=== PATIENT | female | born 1945 | race Caucasian/White ===

== ENCOUNTER 2019-08-10 14:01 | Inpatient (IN) | payer OTHER ==
[~2019-08-10] VITALS: Ht 165.1 cm; Wt 48.5 kg
[2019-08-10] MEDS ORDERED: ST. JOSEPH ASPI81 MG PO ×2 (14:26→14:27)
[2019-08-10] MEDS ORDERED: BACLOFEN5 MG PO (14:28)
[2019-08-10] MEDS ORDERED: CELEXA 20 MG TA20 MG PO (14:29)
[2019-08-10] MEDS ORDERED: DEXAMETHASONE4 MG PO (14:31)
[2019-08-10] MEDS ORDERED: DEXAMETHASONE 44 M1 PO (14:35)
[2019-08-10] MEDS ORDERED: DECADRON4 MG PO (14:36)
[2019-08-10] MEDS ORDERED: LEVO-T100 MCG PO (14:39)
[2019-08-10] MEDS ORDERED: KEPPRA 500 MG500 MG PO (14:39)
[2019-08-10 15:30] VITALS: BP 121/74
--- NOTE | 2019-08-10 16:09 | NUR ---
ASSUMED CARE OF PT AT 1540 WHEN PT BROUGHT TO UNIT BY TRANSPORT COMPANY FROM [facility]. RECEIVED REPORT FROM TREVON AT [facility] PRIOR TO PT ARRIVAL ON UNIT. PT IS A&OX4, BUT HAS VERY LIMITED VERBAL SKILLS AND IS ABLE TO ANSWER YES AND NO QUESTIONS. ADMISSION VITAL SIGNS, HEIGHT AND WEIGHT OBTAINED, AND PT ASSESSMENT COMPLETED. VITAL SIGNS ARE STABLE, PT DENIES PAIN, HR REGULAR, LUNG SOUNDS CLEAR IN ALL LOBES BILATERALLY, ABDOMINAL SOUNDS ACTIVE IN ALL QUADRANTS. COCCYX IS RED AND HAS PROTECTIVE FOAM DRESSING TO AREA WITH BARRIER CREAM APPLIED. RIGHT SIDE FLACCID, REQUIRES 2 PERSON ASSIST TO PIVOT TRANSFER. NO DRAINS OR LINES ON ADMISSION. PT ON 2L O2 VIA NC MAINTAINING O2 SAT OF 95%. CONSULTS CALLED, MEDICATION REC COMPLETED, ALLERGIES ENTERED, PROVIDER NOTIFIED PT IS ON UNIT AT THIS TIME. WILL COMPLETE ADMISSION HX WHEN SPOUSE ON UNIT. FALL PRECAUTIONS IN PLACE, NURSING WILL CONTINUE TO MONITOR.
[2019-08-10 20:10] VITALS: BP 146/74
--- NOTE | 2019-08-11 01:12 | NUR ---
PT ALERT WITH APHASIA. ANSWERS APPROPRIATELY WITH YES OR NO. RIGHT SIDE FLACCID. INCONT OF URINE IN LARGE AMTS. PT C/O PAIN IN HER RIGHT LEG. TYLENOL GIVEN AT HS. CONGESTED NON-PRODUCTIVE COUGH NOTED. 02 ON AT 2L PER NC CONT. O2 SAT 96% PT TURNED Q2H. BED ALARM ON FOR SAFETY. PT APPEARS TO BE SLEEPING ON HOURLY ROUNDS.
[2019-08-11 06:50] LABS: HEMOGLOBIN 11.5 gm/dL (12.0-15.0); MCH 31.4 pg (26.0-34.0); MCHC 32.9 g/dL (28.0-37.0); MCV 95.5 fL (80.0-100.0); RBC 3.67 mil/uL (4.20-5.00); RDW 14.5 % (10.5-14.5); WBC 13.1 thou/uL (4.0-11.0)
[2019-08-11 07:08] LABS: CALCIUM 9.2 mg/dL (8.5-10.1); CREATININE 0.8 mg/dL (0.6-1.0); POTASSIUM 3.8 mmol/L (3.5-5.1)
[2019-08-11 08:35] VITALS: BP 117/67
--- NOTE | 2019-08-11 12:30 | NUR ---
chart review. pt up in wheel chair. she is able to answer yes and no question and said " nice to meet you"/ernesto. pt is flaccid on right side on body. noted in chart and pt " live with , in house, 3 steps. yes basement. independent prior to admit at [facility]. no dme, manage own medication. drives vehicle. no past hh or rehab in past."/ernesto and chart. cm spoke with via phone call, education on dcp and team meeting and find out if pt has insurance and who primary care dr is. yes she has insurance and her dr is eros lyons at [facility]. i will be up later to visit thank you for calling. how did she do today in therapy?"/adrianne . education that can ask therapy to call him or nurse but she working with therapy today.
--- NOTE | 2019-08-11 15:50 | NUR ---
ASSUMED CARE AT 0700, PT A&O X 4, NO ACUTE DISTRESS NOTED. VSS, O2 ON 2L VIA NC. PT DENIES PAIN. MEDS WHOLE WITH APPLESAUCE R/T APHASIA. R SIDE FLACCID, PT IS MAX ASSIST X 2 WITH PIVOT TO CHAIR. NPC NOTED. INCONTINENT OF BOWEL AND BLADDER, LAST BM 08/10/19. NO IV ACCESS. TOLERATED THERAPY TODAY. DENIES ANY PAIN OR DISCOMFORT. BED IN LOWEST POSITION, CALL LIGHT WITHIN REACH, WILL CONTINUE TO MONITOR PER POC.
[2019-08-11 20:10] VITALS: BP 128/69
--- NOTE | 2019-08-12 02:23 | NUR ---
ASSESSED AT START OF SHIFT. ON 2L OF O2. RT SIDED WEAKNES NOTED. PT TAKES MEDS WHOLE WITH APPLE SAUCE ARTHUR EVEING MEDS FINE. FALL PREC IN PLACE, FREQ ROUNDING DONE AND PT REPOSITIONED FOR COMFORT, LOW AIR LOSS MATRESS ON. WILL CONT TO MONITOR TILL EOS.
[2019-08-12 09:00] VITALS: BP 118/60
--- NOTE | 2019-08-12 17:19 | NUR ---
ASSUMED CARE OF PT AT 0715. PT IS A&OX4 AND VITAL SIGNS ARE STABLE. PT DENIES PAIN AND IS PARTICIPATING IN THERAPIES. PT HAS POOR APPETITE, ENCOURAGING PO INTAKE. PT IS FLACCID TO RIGHT SIDE, PRESSURE RELIEF MEASURES IN PLACE, TURNING Q2H, INCONTINENT TO BOWEL AND BLADDER. HR REGULAR, LUNG SOUNDS CLEAR TO ALL LOBES BILATERALLY, BOWEL SOUNDS ACTIVE IN ALL QUADRANTS. PT REQUIRES 2L OF O2 VIA NC TO MAINTAIN SPO2 >90%. PT HAS DIFFICULTY WITH EXPRESSING NEEDS, USES SHORT SIMPLE 1-2 WORD RESPONSES. FALL PRECAUTIONS IN PLACE, NURSING WILL CONTINUE TO MONITOR.
[2019-08-12 19:40] VITALS: BP 148/78
--- NOTE | 2019-08-13 04:16 | NUR ---
ASSUMED CARE AT APPROX 1900 EVENING 08/12. PT LYING IN BED WITH HEAD OF BED ELEVATED RESTING. PT TOOK HS MEDS WITH APPLESAUCE TOLERATING WELL. PT APPEARS TO BE SLEEPING SOUNDLY WITH HOURLY ROUNDING CHECKS. BED ALARM ON AND CALL LIGHT IN REACH. WILL CONTINUE TO MONITOR.
[2019-08-13 08:00] VITALS: BP 131/62
--- NOTE | 2019-08-13 15:22 | NUR ---
ASSUMED CARE OF PT AT 0715. PT IS A&OX4 AND VITAL SIGNS ARE STABLE. PT DENIES PAIN AND PARTICIPATED IN SCHEDULED THERAPIES. PT ON 2L O2 VIA NC, FAILED ATTEMPTS TO LOWER O2. PT FLACCID TO THE RIGHT SIDE AND HAS SIGNIFICANT LEAN TO RIGHT SIDE. EXPRESSIVE APHAGIA AND PT ABLE TO SPEAK IN 1-2 WORD STATEMENTS. APPETITE INCREASED THIS SHIFT. PT REQUIRES 1-2 PERSON TO PIVOT TRANSFER. PT INCONTINENT OF BOTH BOWEL AND BLADDER, BUT IS AWARE WHEN SHE HAS INCONTINENT EPISODES. HR REGUALR, LUNG SOUNDS CLEAR IN ALL LOBES, ABDOMINAL SOUNDS ACTIVE IN ALL QUADRANTS. IN ROOM WITH PATIENT. NO IV ACCESS AT THIS TIME. CALLS APPROPRIATLEY FOR ASSITANCE, FALL PRECAUTIONS IN PLACE, NURSING WILL CONTINUE TO MONITOR.
[2019-08-13 19:03] VITALS: BP 108/48
--- NOTE | 2019-08-14 02:50 | NUR ---
ASSUMED CARE AT APPROX 1900 EVENING 08/13. PT LYING IN BED SLEEPING AT CHANGE OF SHIFT. PT AWOKE FOR HS MEDS AND STATED SHE WAS TIRED FROM THERAPY. PT TOOK HS MEDS WITH APPLESAUCE TOLERATING WELL. PT APPEARS TO BE SLEEPING SOUNDLY WITH HOURLY ROUNDING. BED ALARM ON AND CALL LIGHT IN REACH. WILL CONTINUE TO MONITOR.
[2019-08-14 08:00] VITALS: BP 117/62
--- NOTE | 2019-08-14 11:59 | NUR ---
ASSUMED CARE AT 0700, PT A&O X 4, NO ACUTE DISTRESS DURING SHIFT. VSS, O2 ON 2L VIA NC. PT DENIES ANY PAIN OR DISCOMFORT, MAX ASSIST X 2 PIVOT TO WHEELCHAIR. NO IV ACCESS NOTED, TOLERATES MEDS WHOLE IN APPLESAUCE. INCONTINENT OF BOWEL AND BLADDER. EATING LUNCH IN DINING ROOM, WILL CONTINUE TO MONITOR PER POC.
[2019-08-14 20:14] VITALS: BP 112/68
--- NOTE | 2019-08-14 22:31 | NUR ---
PT ASSESSMENT COMPLETED AND VSS. MEDS GIVEN ORDERED AND WELL TOLERATED. FALL PRECAUTIONS IN PLACE. PTS RIGHT SIDE FLACID. PT STATES THAT SHE DOES NOT HAVE ANY FEELING IN THAT SIDE WHICH IS NOT A CHANGE SINCE HER STROKE. PT C/O PRESSURE AREA ON HER BOTTOM. PRESSURE WOUND ON COCCYX. PICTURES TAKEN. ZINC CREAM APPLIED. WOUND CARE CONSULT ORDERED. SLEEPING. ASST WITH FREQUENT REPOSITION FOR COMFORT. WILL CONTINUE TO MONITOR FREQUENTLY. SAT WNL ON 2L NC.
--- NOTE | 2019-08-15 13:33 | NUR ---
WOUND CONSULT; COCCYX ARE WAS ASSESSED. A SMALL AREA WAS IDENTIFIED. NO S/S OF INFECTION. RED WOUND BED. NO NECROSIS. THE PATIENT IS INCONTINET OF URINE. RECOMMEDNATIONS; 1-LOW AIR LOSS PUMP 2-ZGUARD 3-PURWICK DISCUSSED WITH CHOLO
--- NOTE | 2019-08-15 17:29 | NUR ---
ASSUMED CARE OF PT AT 0715 PT IS A&OX4 AND VITAL SIGNS ARE STABLE. PT DENIES PAIN AND IS PARTICIPATING IN SCHEDULED THERAPIES. WOUNDS CLEANED AND TREATED PER ORDERS, LOW AIRLOSS MATTRESS IN PLACE, TURNED OR REPOSITIONED EVERY 2 HOURS. LAXATIVES PROVIDED FOR PT DUE TO CONSTIPATION, NO RESUTLS AT THIS TIME. PT ON 2L O2, FAILED ATTEMPTS TO WEAN FROM O2. FLACCID TO RIGHT SIDE, HR REGUALR, LUNG SOUNDS CLEAR IN ALL LOBES, BOWEL SOUNDS ACTIVE IN ALL QUADRANTS. CALLS APPROPRIATELY FOR ASSISTANCE, FALL PRECAUTIONS IN PLACE AND NURISNG WILL CONTINUE TO MONITOR.
[2019-08-15 19:00] VITALS: BP 117/55
--- NOTE | 2019-08-16 00:56 | NUR ---
PT ALERT AND APPROPIATE WITH APHASIA. RIGHT SIDE FLACCID. PT TOOK HS MEDS IN APPLESAUCE WITHOUT DIFFICULTY. PT DENIES PAIN OR DISCOMFORT. BED ALARM ON FOR SAFETY. PT APPEARS TO BE SLEEPING ON HOURLY ROUNDS.
[2019-08-16 06:21] LABS: CHOLESTEROL 221 mg/dL (<200); HDL CHOLESTEROL 92 mg/dL (>40); LDL CHOLESTEROL 107 mg/dL (<100); TC:HDL 2.4 Ratio (Not establshd); TRIGLYCERIDE 110 mg/dL (<150); VLDL 22 mg/dL (<40)
[2019-08-16 06:23] LABS: SERUM ASSESSMENT Clear
[2019-08-16 09:00] VITALS: BP 102/73
--- NOTE | 2019-08-16 10:58 | NUR ---
ASSUMED CARE AT 0700. PATIENT IS ALERT AND ORIENTED X4. PATIENT HAS EXPRESSIVE APHAGIA. PATIENT HAS FLACCID RIGHT SIDE. LUNGS ARE CLEAR AND DEMINISHED. ABD IS SOFT WITH BSX4. PATIENT HAD BM TODAY. LAXATIVES HELD. Z GUARD TO HER RED BOTTOM. PATIENT CAN BE INCONTINENT OF B & B AT TIMES. UP TO THE DINING ROOM PER W/C. ST HERE TO ASSIST PATIENT. PATIENT TOOK PILLS 1 AT A TIME WITH APPLESAUCE. UP WITH ASSIST OF 2 FOR TRANSFERS. FALL AND SAFETY PROTOCOLS IN PLACE. DENIES ANY PAIN AT THIS TIME. CONTINUES TO PROGRESS SLOWLY TOWARDS D/C GOALS. WILL CONTINUE TO MONITER.
--- NOTE | 2019-08-16 13:09 | NUR ---
team meeting, recommendation: re team, dc . will need training with therapy closer to dc. pt will possible need wheel chair and ramp at home. pt on [facility] soft thin liquid.
[2019-08-16 19:00] VITALS: BP 111/66
--- NOTE | 2019-08-17 00:09 | NUR ---
PT ASSESSMENT COMPLETED AND VSS. MEDS GIVEN ORDERED AND WELL TOLERATED. FALL PRECAUTIONS IN PLACE. PT STATES THAT SHE IS VERY TIRED THIS EVENING. DENIES NEEDS. INC OF URINE. NAVIN CARE PROVICED. ASST WITH REPOSITION. BARRIER CREAM APPLIED TO COCCYX. SLEEPING WELL. WILL CONTINUE TO MONITOR FREQUENTLY.
[2019-08-17 08:30] VITALS: BP 118/57
--- NOTE | 2019-08-17 16:37 | NUR ---
ASSUMED CARE AT 0700. PATIENT IS A&OX4. PATIENT HAS RIGHT SIDED FLACCIDITY. PATIENT LUNGS ARE CLEAR AND DEMINISHED. ABD IS SOFT WITH BSX4. HELD LAXATIVE TODAY. PATIENT IS INCONTINENT OF B&B. FALL AND SAFETY PROTOCOLS IN PLACE. DENIES ANY PAIN AT THIS TIME. CONTINUES TO PROGRESS SLOWLY TOWARDS D/C GOALS. WILL CONTINUE TO MONITER.
[2019-08-17 19:37] VITALS: BP 118/67
--- NOTE | 2019-08-18 00:55 | NUR ---
PT ALERT AND ORIENTED X 4 WITH APHASIA. RIGHT SIDE FLACCID. PT TAKES MEDS IN APPLESAUCE WITHOUT DIFFICULTY. PT C/O PAIN IN RIGHT GROIN. TYLENOL GIVEN ORDERED AND PT SLEEPING UPON REASSESSMENT. TURNED Q2H. BED ALARM ON FOR SAFETY. PT APPEARS TO BE SLEEPING ON HOURLY ROUNDS.
[2019-08-18 08:00] VITALS: BP 134/78
--- NOTE | 2019-08-18 09:38 | H ---
[facility] [place] [address] HISTORY AND PHYSICAL Name: MANJU GIRON Room #: 511-P ADM IN M.R.#: [id number] Admission: 08/10/19 Attend Phys: Jeremi Calix MD Discharge: Date of : 49 Report #: [id number] THIS REPORT FOR: //name// CC: Jeremi Claix [facility] unknown DATE OF SERVICE: 08/11/2019 POSTADMISSION PHYSICIAN EVALUATION HISTORY OF PRESENT ILLNESS: The patient is a 74-year-old white female admitted from [facility] to the inpatient rehab forde at [facility]. The patient was originally seen at [facility] on 08/03/2019 after collapsing at home. She was found to have a left intraparenchymal hemorrhage, was seen by Neurosurgery. No surgical intervention was required. She did have a 3 mm [id number] midline shift. She continued to have right hemiparesis and she was placed on Keppra prophylaxis and dexamethasone taper. She was transferred for acute in-hospital inpatient rehabilitation. Past medical history, allergies, social history, habits, please see the history and physical documentation as noted. MEDICATIONS: See the MAR. SOCIAL HISTORY: As noted. She had been independent driving, was right-handed, living with her without gait aids. REVIEW OF SYSTEMS: No complaints of chest pain, shortness of breath or abdominal discomfort. HABITS: As noted above. She is a half pack per day smoker. PHYSICAL EXAMINATION: GENERAL: The patient was seen earlier and was in no distress. VITAL SIGNS: Last recorded temperature 36.3, pulse 80, respirations 20, blood pressure 117/67. HEENT: Appeared to be benign. CHEST: Sounded clear to auscultation. She is on nasal cannula O2. CARDIOVASCULAR: Regular rate and rhythm. ABDOMEN: Bowel sounds positive, nontender. GENITOURINARY AND RECTAL: Deferred. NEUROLOGIC: She does have significant right-sided hemiparesis. No right hand psychotherapist. Tone is increased in the right lower extremity more than the right upper extremity with difficulty with passive range of motion. She has weakness of the right ankle in dorsiflexion with foot drop. Sensation appeared decreased right upper and right lower extremity. She has functional [place] [address] HISTORY AND PHYSICAL Name: MANJU GIRON Room #: 511-[facility] IN [facility].#: [id number] Admission: 08/10/19 Attend Phys: Jeremi Calix MD Discharge: Date of : 47 Report #: [id number] extremity, although her psychotherapist is somewhat weak. Left lower extremity is probably a grade 3+ to 4-/5. Negative Homans. She has been max assist, trying to come to stand and max assist of 2 to try to do basic transfers. She may have some difficulty with word finding. ASSESSMENT: 1. Left hemorrhagic cerebrovascular accident. 2. Right hemiparesis. 3. Dysphagia. She is on a mechanical altered diet. 4. Mild leukocytosis. 5. Anxiety, depression. 6. Hypothyroidism. PLAN: The patient has been admitted for acute in-hospital inpatient rehabilitation. From a postadmission physician evaluation perspective, there are no relevant changes since the preadmission screening. Please see the above review of prior and current medical and functional conditions and comorbidities. Please see the patient's previous and current functional status. As far as risk of complication, she has the multiple medical comorbidities as noted above. Initial plan of care involves the interdisciplinary acute inpatient rehabilitation program. Measurable functional goals would be for the patient to become modified independent with transfers, mobility and ADLs to improve as far as swallowing issues and she will also be assessed regarding cognition, communication. Goals to hopefully maximize her functional independence, so she can return back home with her . Prognosis is reasonably good with estimated length of stay probably at least 2-3 weeks pending progress. Potential barriers would include her multiple medical comorbidities and decreased functional status. <ELECTRONICALLY SIGNED> By: Jeremi Calix MD 08/18/19 0938 [id number] Jeremi Calix MD /[facility]
--- NOTE | 2019-08-18 09:42 | PLAN ---
[facility] [place] [address] REHAB UNIT PLAN OF CARE Name: MANJU GIRON Room #: 511-P ADM IN M.R.#: [id number] Admission: 08/10/19 Attend Phys: Jeremi Calix MD Discharge: Date of : 49 Report #: [id number] THIS REPORT FOR: //name// CC: Jeremi Calix [facility] unknown DATE OF SERVICE: 08/12/2019 PROGRESS NOTE/OVERALL PLAN OF CARE SUBJECTIVE: The patient is seen back today in followup. She is in no distress. Temperature 37.1, pulse 65, respirations 18, blood pressure 128/69. She is alert, pleasant. She has dense right upper extremity flaccid plegia. There is a grade 2 right elbow DTRs. Negative Newsome's. Right lower extremity, no volitional movement was noted. She has a little more tone of the right lower extremity. No clonus at the ankle, however. Sensation may be somewhat decreased on the right side upper and lower extremity. Functionally, she is needing max assist sit to stand, max assist, bed to wheelchair. She has been unable to ambulate. Lower body dressing is dependent. In speech therapy, she is on mechanical soft, thin liquid diet. She does have moderate to severe memory deficits with kmeuvocf-[id number] cognitive deficits. ASSESSMENT: A 74-year-old white female with the following problem list: 1. Left hemorrhagic cerebrovascular accident. 2. Right-sided hemiplegia. This is morbid dense hemiparesis. 3. Dysphagia, on mechanical altered diet. 4. Recent mild leukocytosis. 5. Anxiety and depression. 6. Hypothyroidism. PLAN: The overall plan of care is based on the preadmission screen, post-admission physician evaluation and information garnered from therapy assessments. 1. Estimated length of stay is probably at least 2-1/2 to 3 weeks and likely longer as warranted. 2. Medical prognosis is reasonably good. She does have pretty dense weakness; however, with the significant functional decline and is at a lower level. 3. Anticipated interventions includes the interdisciplinary acute inpatient rehabilitation program. 4. Anticipated functional outcomes would be for the patient to become modified independent with transfers or at least min assist with transfers and to hopefully be able to do some short distance ambulation. Also to improve as far as ADLs and cognition. 5. Discharge destination would be to return back home with her . 6. Expected therapy by discipline includes PT, OT and speech 1 [place] [address] REHAB UNIT PLAN OF CARE Name: MANJU GIRON Room #: 511-P ADM IN ..#: [id number] Admission: 08/10/19 Attend Phys: Jeremi Calix MD Discharge: Date of : 49 Report #: [id number] each five days a week throughout the duration of the acute inpatient rehabilitation stay. <ELECTRONICALLY SIGNED> By: Jeremi Calix MD 08/18/19 0942 [id number] 1624 Jeremi Calix MD /[facility]
--- NOTE | 2019-08-18 10:00 | NUR ---
WOUND CARE F/U ASSESSED COCCYX AND SACRAL AREA W/ MAIL DELIVERER, AREA HEALING, BLANCHABLE, NO S/S INFECTION, PINK VIABLE TISSUE COCCYX, SLIGHTLY SAMMY AREAS BILAT BUTTOCKS, PHOTO TAKEN, PT ALERT, COOPERATIVE, ENCOURAGED TO TURN, KEEP OFF AREAS ALLISON WHEN IN BED, LOW AIR LOSS PUMP ON BED, IF CONT PURE WICK AT NIGHT PRN RECOMMENDATIONS TURN Q 2HOURS WHEN IN BED, OFF LOADING, CONT LOW AIR LOSS, ZGUARD DAILY AND PRN, PURE WICK HS IF INCONT MAIL DELIVERER AWARE
--- NOTE | 2019-08-18 17:24 | NUR ---
ASSUMED CARE OF PT AT 0715. PT IS A&OX4 AND VITAL SIGNS ARE STABLE. PT DENIES PAIN AND PARTICIPATED IN SCHEDULED THERAPIES. WOUND TO COCCYX CLEANED AND DRESSED PER ORDERS. HR REGULAR, LUNG SOIUDNS CLEAR IN ALL LOBES, BOWEL SOUNDS ACTIVE IN ALL QUADRANTS. INCONTINENT OF BOWEL AND BLADDER. TOLERATES MEDICATIONS WHOLE IN APPLESAUCE. FLACCID ON RIGHT WITH EXPRESSIVE APHAGIA. PT ON ROOM AIR AT THIS TIME WITHOUT S/S OF HYPOXIA. CALLS APPROPRIATELY FOR ASSISTANCE, FALL PRECAUTIONS IN PLACE, NURSING WILL CONTINUE TO MONITOR.
[2019-08-18 20:00] VITALS: BP 127/74
--- NOTE | 2019-08-19 02:09 | NUR ---
PT CARE ASSUMED WITH PT IN BED WATCHING TV.PT IS A/O X4.PT HAS EXPRESSIVE APHASIA AND RIGHT SIDE FLACCID.PT TAKE MED WHOLE WITH APPLE SAUCE WITH NO DIFFICULTIES.PT DENIED PAIN AND N/V.PT IS Q2 TURNING.ITEMS PLACED ON LT SIDE FOR EASY ACCESS.FALL PRECAUTION IN PLACE FOR SAFETY.WILL CONTINUE TO MONITOR PER POC.
[2019-08-19 20:00] VITALS: BP 121/68
--- NOTE | 2019-08-19 21:49 | NUR ---
ASSUMED CARE OF PT AT 0715. PT IS A&OX4 AND VITAL SIGNS ARE STABLE. PT DENIES PAIN AND PARTICIPATED IN SCHEDULED THERAPIES. BARRIER CREAM APPLIED TO COCCYX, TURNED Q2H. NO IV ACCESS AT THIS TIME. FALL PRECAUTIONS IN PLACE, NURSING WILL CONTINUE TO MONITOR.
--- NOTE | 2019-08-20 03:48 | NUR ---
assumed care at approx 1900 evening 08/19. pt lying in bed with head of bed elevated at change of shift and dozing off and on. pt incontinent of urine and assisted with changing and turning in bed. pt took hs meds with applesauce tolerating well. pt appears to be sleeping soundly with hourly rounding checks. bed alarm on and call light in reach. will continue to monitor.
[2019-08-20 09:00] VITALS: BP 119/66
--- NOTE | 2019-08-20 18:55 | NUR ---
Assumed pt care this am, V S stable. Incontinent of bladder, pt would have meals in the dinning area. Right sided weakness noted, was able to help putting her pants on partially. Hydration encouraged through out the shift. POC followed no signs or verbalizatiosn of distress have been noted. endorsed to the night nurse.
--- NOTE | 2019-08-20 19:10 | HC ---
[facility] [place] [place] [address] CONSULTATION Name: MANJU GIRON Room #: 511-P ADM IN M.R.#: [id number] Admission: 08/10/19 Attend Phys: Jeremi Calix MD Discharge: Date of : 49 Report #: [id number] THIS REPORT FOR: cc: CHARBEL - Family physician unknown CHARBEL - Family physician unknown Ian Santizo PhD ~ THIS REPORT FOR: //name// CC: Jeremi BARGER unknown DATE OF SERVICE: 08/13/2019 BEHAVIORAL STATUS EXAM AGE: 74. ATTENDING PHYSICIAN: Jeremi Calix M.D. PLANT ENGINEER: Ian Santizo, PhD. CLINICAL PRESENTATION: The patient is a 74-year-old female admitted to the [facility] Unit for comprehensive inpatient rehabilitation program to improve functional mobility, activities of daily living and self-care and mental status secondary to deficits from a cerebrovascular accident. The patient was at home with her when she experienced sensory, motor deficits. Her contacted 911 and she was brought into the Emergency Room. She was diagnosed with a left intraparenchymal hemorrhage and was seen by Neurosurgery at the [facility]. No surgical intervention was recommended, although she had a left to right midline shift. She presented with a right side hemiparesis and was placed on Keppra prophylaxis and dexamethasone taper. The patient was then transferred for inpatient rehabilitation at [facility]. Prior to this most recent medical event, she was living independently with her in their home. She has 2 children. The patient is a high school graduate. She retired about 10 years ago from work at a [employer] company. Prior treatment for depression/anxiety is reported with the use of citalopram. It should be noted the patient indicates having smoked 1 pack of cigarettes daily and also was smoking cannabis at 1-2 joints per day. She was independent with all instrumental activities of daily living and driving prior to her stroke. TECHNIQUES UTILIZED: Clinical interview, review of medical records, staff [facility] [address] [place] [address] CONSULTATION Name: MANJU GIRON Room #: 511-[facility] IN ..#: [id number] Admission: 08/10/19 Attend Phys: Jeremi Calix MD Discharge: Date of : 47 Report #: [id number] consultation and behavioral observation, mini mental status exam 2 standard version, family interview and subtests of the Western Aphasia battery. EXAMINATION FINDINGS: She was alert and cooperative with the assessment. She was unable to describe the reason for her hospitalization and has poor insight into the events leading up to her admission as well as a limited understanding of having had the stroke for which she is getting treatment. It should be noted that imaging revealed two mini strokes in her past. She does not report symptoms of anxiety or depression. Variability in sleep and appetite are reported. The patient lacks insight into aspects of her cognitive disorder. Performance on the mini mental status exam 2 brief version was at the 1st percentile with a raw score of 11 of 16 and a T score of 26. She was 3/3 for initial registration, 4/5 for orientation to time, 4/[address] and 0/3 for immediate recall of 3 items after a brief time delay and distraction. Performance on the MMSE 2 standard version was 19 of 30 with a T score of 27 and percentile rank of 1. She was 0/5 for serial 7's, 2/2 for naming, 1/1 for repetition, 3/3 for auditory comprehension. She could read and follow a single command and write a sentence. The patient presents with a non fluent aphasia, suggestive of a transcortical motor aphasia. She is alert and oriented and does not appear depressed. However, a mild degree of anxiety with frustration in verbal expression is suggested. 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 Unspecified Anxiety Disorder RECOMMENDATIONS: The patient will need assistance with instrumental activities of daily living and self-care. She is lacking in initiative, which will require increased environmental support. Her mood appears satisfactory at this time. Verbal praise and complements about participation in therapies along with encouragement for taking initiative will also assist in her overall adjustment. Family education regarding cognitive disorder will be necessary. Discontinuation of cannabis and tobacco is also recommended. Driving will need to be discontinued pending further evaluation and recovery. A followup Neuropsych assessment approximately three to six months post-discharge will also help clarify severity of deficits. [address] [address] CONSULTATION Name: MANJU GIRON Room #: 511-P [facility] IN M.R.#: [id number] Admission: 08/10/19 Attend Phys: Jeremi Calix MD Discharge: Date of : 49 Report #: [id number] Thank you very much for allowing me to provide the consultation on this patient. <ELECTRONICALLY SIGNED> By: Ian Santizo, PhD 08/20/19 [id number] Ian Santizo, PhD /nt
[2019-08-20 20:00] VITALS: BP 105/58
--- NOTE | 2019-08-21 02:51 | NUR ---
assumed care at approx 1900 evening 08/20. pt lying in bed with head of bed elevated sleeping at change of shift. pt awoke for hs meds and stated she was tired from therapy. pt incontinent of urine and assisted with changing of pad. pt took hs meds with applesauce tolerating well. pt appears to be sleeping soundly. hourly rounding continued. bed alarm on and call light in reach. will continue to monitor.
[2019-08-21 09:00] VITALS: BP 127/53
[2019-08-21 18:55] VITALS: BP 129/71
--- NOTE | 2019-08-21 19:01 | NUR ---
ASSUMED CARE AT 0700. PT A&OX4. PT IS MAX ASSIST TO WHEELCHAIR TO PIVOT. PT IS FULLY FLACCID ON R SIDE. PT C/O PAIN THIS AFTERNOON IN HER ABD, GENERALIZED AND WAS GIVEN PRN TYLENOL ORDERED. PT STATED COMPLETE PAIN RELIEF AFTER TYLENOL WAS GIVEN. PT ATE BREAKFAST IN ROOM BUT CAME OUT TO DINING ROOM FOR LUNCH AND DINNER. PT HAS POOR APPETITE BUT DOES DRINK 100% OR ENSURE. PT TOOK MEDS WHOLE WITH APPLESAUCE. PT'S CAME UP THIS AFTERNOON AND VISITED WITH PT. PT NEEDS LOTS OF HELP DRESSING HER SELF BECAUSE SHE HAS TO USE HER LEFT ARM AND LEG TO BALANCE HERSELF WHEN IN THE SITTING UP POSITION. PT HAS BEEN INCONTINENT OF URINE ENTIRE SHIFT.
--- NOTE | 2019-08-22 01:21 | NUR ---
PT ALERT AND ORIENTED X 4 WITH APHASIA. RIGHT SIDE FLACCID. INCONT OF URINE. TURNED Q2H. PT TAKES MEDS IN APPLESAUCE WITHOUT DIFFICULTY. PT DENIES PAIN OR DISCOMFORT. BED ALARM ON FOR SAFETY. PT APPEARS TO BE SLEEPING ON HOURLY ROUNDS.
[2019-08-22 07:22] LABS: HEMATOCRIT 34.7 % (37.0-47.0); HEMOGLOBIN 11.5 gm/dL (12.0-15.0); MCH 31.8 pg (26.0-34.0); MCV 96.2 fL (80.0-100.0); RBC 3.61 mil/uL (4.20-5.00); WBC 15.8 thou/uL (4.0-11.0)
[2019-08-22 07:30] LABS: CALCIUM 9.2 mg/dL (8.5-10.1); POTASSIUM 3.6 mmol/L (3.5-5.1)
--- NOTE | 2019-08-22 11:43 | NUR ---
WOUND CARE F/U ASSESSED COCCYX AND SACRAL AREA W/ CHILD AND YOUTH PROGRAM ASSISTANT, BOTH AREAS PINK, BLANCHABLE, NO S/S INFECTION, ALMOST HEALED, ENCOURAGED TO KEEP OFF AREAS, TURN [id number] WHEN IN BED, REMAINS ON LOW AIR LOSS PUMP TO BED RECOMMENDATIONS CONT ZGUARD DAILY AND PRN TO COCCYX AND SACRAL AREA, TURN Q 2 HOURS WHEN IN BED, OFF LOADING, CONT LOW AIR LOSS PUMP TO BED CHILD AND YOUTH PROGRAM ASSISTANT AWARE
--- NOTE | 2019-08-22 12:46 | NUR ---
Nutrition followup: pt continues to eat on average 50% of meals on mechanically altered chopped diet. Drinks 100% of ensure enlive BID which alone provides 700 kcals and 40 gm protein. Weight up 8# from prior eval. ST conducting dysphagia therapy. Noted pt not wearing bottom denture plate at present. Voices no food preferences or concerns for RD. Change to low risk.
--- NOTE | 2019-08-22 19:28 | NUR ---
ASSUMED CARE AT 0700, PT A&O X 4, NO ACUTE DISTRESS DURING SHIFT. VSS O2 ON RA. PT DENIED ANY PAIN OR DISCOMFORT DURING SHIFT. IV 20G TO LFA INFUSING NS/20KCL AT 100ML/H. PT TOLERATED THERAPY, INCONTINENT OF B&B, BM 08/22/19. ZGUARD FOR REDNESS TO SACRUM. BED IN LOWEST POSITION, CALL LIGHT WITHIN REACH, WILL CONTINUE TO MONITOR PER POC.
[2019-08-22 20:09] VITALS: BP 134/70
--- NOTE | 2019-08-23 00:21 | NUR ---
PT ALERT AND ORIENTED X 4. LFA IV INFUSING WITHOUT DIFFICULTY. INCONT OF URINE. PT TAKES MEDS IN APPLESAUCE WITHOUT DIFFICULTY. PT DENIES PAIN OR DISCOMFORT. BED ALARM ON FOR SAFETY. PT CHECKED ON HOURLY ROUNDS.
[2019-08-23 07:07] LABS: CALCIUM 8.6 mg/dL (8.5-10.1); CREATININE 0.9 mg/dL (0.6-1.0); POTASSIUM 4.1 mmol/L (3.5-5.1)
[2019-08-23 07:34] VITALS: BP 130/66
--- NOTE | 2019-08-23 14:15 | NUR ---
team meeting, recommendation: ivf rt abnormal lab. right afo new order. started light gate today with physical therapy. speech cont, mech soft thin diet. working on bathroom updates. [facility]. will start with [facility] then [facility] referral. hh (pt, ot, st, nursing and sw). to work with therapy on training.
--- NOTE | 2019-08-23 19:36 | NUR ---
ASSUMED CARE AT 0700, PT A&O X 4, NO ACUTE DISTRESS DURING SHIFT. VSS O2 ON RA. PT DENIES PAIN OR DISCOMFORT. IV 20G TO LFA INFUSING NS/20KCL AT 100ML/H. TOLERATED THERAPY TODAY, MAX ASSIST X 2 PIVOT TO W/C. ATE MEALS IN DINING RM, TOLERATES MEDS WHOLE WITH APPLESAUCE. INCONTINENT OF B&B, BM THIS AFTERNOON, ZGUARD TO SACRUM FOR REDNESS. BED IN LOWEST POSITION, CALL LIGHT WITHIN REACH, WILL CONTINUE TO MONITOR PER POC.
[2019-08-23 20:00] VITALS: BP 132/62
--- NOTE | 2019-08-24 03:38 | NUR ---
ASSUMED CARE AT APPROX 1900 EVENING 08/23. PT LYING IN BED WITH HEAD OF BED ELEVATED RESTING. PT ALERT AND ORIENTED X4, PLEASANT AND COOPERATIVE. IVF INFUSING TO RIGHT FOREARM IV SITE. PT TOOK HS MEDS WITH APPLESAUCE TOLERATING WELL. PT ASSISTED WITH TURNING AND REPOSITIONING. PT APPEARS TO BE SLEEPING SOUNDLY WITH HOURLY ROUNDING CHECKS. BED ALARM ON AND CALL LIGHT IN REACH. WILL CONTINUE TO MONITOR.
[2019-08-24 06:13] LABS: HEMATOCRIT 32.9 % (37.0-47.0); HEMOGLOBIN 10.8 gm/dL (12.0-15.0); MCH 31.9 pg (26.0-34.0); MCHC 32.8 g/dL (28.0-37.0); MCV 97.1 fL (80.0-100.0); RBC 3.39 mil/uL (4.20-5.00); RDW 14.7 % (10.5-14.5)
[2019-08-24 06:40] LABS: CREATININE 0.8 mg/dL (0.6-1.0); MAGNESIUM 1.9 mg/dL (1.8-2.4)
[2019-08-24 08:00] VITALS: BP 114/60
[2019-08-24 19:11] VITALS: BP 149/76
--- NOTE | 2019-08-24 19:23 | NUR ---
ASSUMED CARE OF PT AT 0715. PT IS A&OX4 AND VITAL SIGNS ARE STABLE. PT DENIES PAIN AND PARTICIPATED IN SCHEDULED THERAPIES. IV FLUIDS D/C'D. HR REGULAR, LUNG SOUNDS CLEAR, BOWEL SOUNDS ACTIVE. TURNED Q2 AND WOUNDS CLEANED AND BARRIER CREAM APPLIED. FALL PRECAUTIONS IN PLACE AND NURSING WILL CONTINUE TO MONITOR.
--- NOTE | 2019-08-24 22:06 | NUR ---
PT ASSESSMENT COMPLETED AND VSS. MEDS GIVEN ORDERED AND WELL TOLERATED. PRN TYLENOL HELPFUL FOR GENERALIZED DISCOMFORT. ASST WITH FREQUENT REPOSITION FOR COMFORT. INC OF URINE. REFUSED MIRLAX. SLEEPING WELL. WILL CONTINUE TO MONITOR FREQUENTLY.
[2019-08-25 07:06] LABS: CREATININE 0.8 mg/dL (0.6-1.0); MAGNESIUM 1.9 mg/dL (1.8-2.4); POTASSIUM 3.5 mmol/L (3.5-5.1)
--- NOTE | 2019-08-25 08:46 | NUR ---
WOUND CARE F/U ASSESS SACRAL/BUTTOCK AREA W/ ASSISTANT PROSECUTING ATTORNEYCHOLO SOLIMAN. WOUND HEALED. PT ALERT COOPERATIVE, INCONT AT TIMES, SUGGESTED TO CONT GOOD SKIN/NAVIN CARE, PROTECTIVE CREAM IE ZGUARD TO BUTTOCKS SACRAL AREA, REMAINS ON LOW AIR LOSS PUMP TO BED, WILL SIGN OFF FOR WOUND CARE RECOMMENDATIONS CONT GOOD SKIN/NAVIN CARE W/ PROTECTIVE CREAM DUE TO INCONT AT TIMES, TURN [id number] WHEN IN BED, OFF LOADING, CONT LOW AIR LOSS PUMP TO BED ASSISTANT PROSECUTING ATTORNEY AWARE
[2019-08-25 11:35] VITALS: BP 127/68
[2019-08-25 11:46] VITALS: BP 138/72
--- NOTE | 2019-08-25 11:48 | NUR ---
AT 1135, PT IN DINING ROOM AND RANG HUFF. STATED SHE WAS HAVING PAIN, AND STATED IT IS SHARP AND IN HER CHEST. ALERTED CHOLO SOLIMAN, AND VITALS ARE CHARTED" BP 127/68, P 87, SAT 97! ON O2 AT 1L PER NC, AND TEMP 98.0. PATIENT ASSISTED TO BED AND SHE IS PURSED-LIP BREATHING. O2 SAT REMAINS IN HIGH 90'S ON 1L PER NC. JANNY EMMANUEL PAGING MD FOR ORDERS.
[2019-08-25 12:23] LABS: HEMATOCRIT 33.1 % (37.0-47.0); HEMOGLOBIN 10.8 gm/dL (12.0-15.0); MCH 31.8 pg (26.0-34.0); MCHC 32.6 g/dL (28.0-37.0); MCV 97.5 fL (80.0-100.0); RBC 3.39 mil/uL (4.20-5.00); RDW 14.4 % (10.5-14.5); WBC 11.3 thou/uL (4.0-11.0)
--- NOTE | 2019-08-25 16:19 | EKG ---
[facility] [place] [place] [address] ELECTROCARDIOGRAM REPORT Name: MANJU GIRON Room #: [facility] ADM IN M.R.#: [id number] Admission: 08/10/19 Attend Phys: Jeremi Calix MD Discharge: Date of : 49 Report #: [id number] THIS REPORT FOR: cc: FAM - Family physician unknown FAM - Family physician unknown Jayden Vásquez MD ~ THIS REPORT FOR: //name// [facility] Test Date: 2019-08-25 Test Time: 12:13:01 Pat Name: MANJU GIRON Department: Room: [facility] Gender: F Triage Licensed Practical Nurse: Jatinder RICO : 1945 Requested By: Olesya Lewis Order Number: [id number] MD: Jayden Vásquez Measurements Intervals [place] Rate: 78 P: 60 DE: 139 QRS: -54 QRSD: 87 T: 40 QT: 367 QTc: 419 Interpretive Statements Sinus rhythm Left anterior fascicular block Anteroseptal infarct, old No previous ECG available for comparison Electronically Signed On 08-25-2019 16:18:05 TAX STAFF ACCOUNTANT by Jayden Vásquez [email or web address] <ELECTRONICALLY SIGNED> By: Jayden Vásquez MD 08/25/19 1618 1213 1213 Jayden Vásquez MD /EPI
[2019-08-25 19:44] VITALS: BP 130/82
--- NOTE | 2019-08-25 19:50 | NUR ---
ASSUMED CARE OF PT AT 0700. PT IS A&OX4, DURING AM VITAL SIGNS SPO2 88-90. DURING ST PT REPORTED SOA AND 1L O2 PLACED ON PT VIA NC SPO2 >90%, LOOSE NON-PRODUCTIVE COUGH NOTED, LUNG SOUNDS DIMINISHED IN LOWER LOBES. DURING LUNCH PT REPORTED CHEST PAIN, ORDERS FOR EKG, CHEST X-RAY AND LABS. CHEST X-RAY INDICATED POSSIBLE PNEUMONIA. ORDERS FOR CT OF CHEST, AWAITING RESULTS. PT REMAINS ON O2 AT 2L FOR COMFORT. PT REPORTS THAT PAIN LESS FOLLOWING RESTING DURING EARLY AFTERNOON. PT PARTICIPATED IN THERAPIES. FALL PRECAUTIONS IN PLACE AND NURSING WILL CONTINUE TO MONITOR.
--- NOTE | 2019-08-26 00:24 | NUR ---
PT ASSESSMENT COMPLETED AND VSS. MEDS GIVEN ORDERED AND WELL TOLERATED. REMAINS A MAX 2 ASST PIVOT FROM WHEELCHAIR TO BED. PT SOA WITH EXERTION. ENC C & DB. PT IS WORKING ON THIS WITH EACH COMMERCIAL. SAT WNL ON NC. RT TREATMENT GIVEN HS. CALLED CT SCAN RESULTS TO CATARINO ARREDONDO. CATARINO ARREDONDO STATED THAT SHE WOULD LOOK AT THE RESULTS AND ONLY PLACE ORDERS IF NEEDED. ASST WITH REPOSITION USING PILLOWS FOR COMFORT WITH SPECIAL CARE TO FLACID R SIDE. INC OF LARGE AMOUNTS OF URINE. NAVIN CARE PROVIDED AND BARRIER CREAM APPLIED. HOB ELEVATED AT HS. SLEEPING WELL. APPEARS VERY COMFORTALBE. BREATHING IS WNL AND NOT LABORED AT THIS TIME. PT DENIES ANY CHEST PAIN MENTIONED EARLIER IN THE DAY. WILL CONTINUE TO MONITOR FREQUENTLY.
[2019-08-26 07:28] LABS: CALCIUM 9.1 mg/dL (8.5-10.1); CREATININE 0.9 mg/dL (0.6-1.0); MAGNESIUM 1.8 mg/dL (1.8-2.4); POTASSIUM 3.5 mmol/L (3.5-5.1)
[2019-08-26 08:00] VITALS: BP 113/59
--- NOTE | 2019-08-26 21:01 | NUR ---
ASSUMED CARE OF PT AT 0700. PT IS A&OX4 AND VITAL SIGNS ARE STABLE. PT DENIES PAIN AND PARTICIPATED IN SCHEDULED THERAPIES. PT REMOVED FROM 2L O2 AND IS NOW ON ROOM AIR WITH SAT >90%. NURSING AWARE AND WILL CONTIUE TO MONITOR THROUGHOUT NIGHT. LUNG SOUNDS CLEAR/DIMINISHED, HR REGULAR, NON-PRODUCTIVE COUGH NOTED. IS ENCOURAGED BY NURSING. FALL PRECAUTIONS IN PLACE AND NURSING WILL CONTINUE TO MONITOR.
[2019-08-26 23:16] LABS: URINE BILIRUBIN NEGATIVE (Negative); URINE BLOOD 3+ (Negative); URINE CLARITY SL CLOUDY; URINE COLOR YELLOW; URINE GLUCOSE-RANDOM* NEGATIVE (Negative); URINE KETONES NEGATIVE (Negative); URINE NITRITE-REFLEX NEGATIVE (Negative); URINE PROTEIN (DIPSTICK) NEGATIVE (Negative); URINE UROBILINOGEN 0.2 E.U./dl (0.2-1.0)
[2019-08-26 23:32] LABS: MUCUS 0-3 Light strn/LPF (None Seen); URINE LEUKOCYTES-REFLEX 1+ (Negative)
[2019-08-26 23:33] LABS: HYALINE CASTS 0-3 Few /LPF (None Seen); URINE RBC 3-10 Few /HPF (0-2)
[2019-08-26 23:34] LABS: AMORPHOUS URATES Moderate /LPF (None Seen); BACTERIA-REFLEX >30 Many /HPF (None Seen); CRYSTALS None Seen /LPF (None Seen); URINE WBC-REFLEX 6-15 Few /HPF (0-5)
[2019-08-26 23:35] LABS: SQUAMOUS 4-10 Moderate /LPF (0-3)
[2019-08-27 01:20] VITALS: BP 126/69
--- NOTE | 2019-08-27 03:02 | NUR ---
ASSUMED CARE AT APPROX 1900 EVENING 08/26. PT LYING IN BED WITH HEAD OF BED ELEVATED. PT SOMEWHAT RESTLESS AND ASSISTED WITH CHANGING OF PAD/LINEN IN BED. PT TOOK HS MEDS WITH APPLESAUCE TOLERATING WELL. PT PLACED ON O2 AT 2L PER N/C SAT WAS 88% ON ROOM AIR. PT PLACED ON BEDPAN AND WAS ABLE TO VOID SMALL AMT URINE AND SENT TO LAB FOR UA. PT APPEARS TO BE SLEEPING SOUNDLY NOW WITH HOURLY ROUNDING. BED ALARM ON AND CALL LIGHT IN REACH. WILL CONTINUE TO MONITOR.
[2019-08-27 21:25] VITALS: BP 106/48
--- NOTE | 2019-08-28 03:49 | NUR ---
assumed care at approx 1900 evening 08/27. pt lying in bed with head of bed elevated at change of shift. pt took hs meds with applesauce tolerating well. pt assisted with turning and repositioning q2hrs. pt appears to be sleeping soundly with hourly rounding checks. bed alarm on and call light in reach. will continue to monitor.
[2019-08-28 08:20] VITALS: BP 113/62
--- NOTE | 2019-08-28 19:51 | NUR ---
ASSUMED CARE AT 0700, PT A&O X 4, NO ACUTE DISTRESS DURING SHIFT. VSS, O2 ON RA. PT DENIES ANY PAIN OR DISCOMFORT. MAX ASSIST X 2 PIVOT TO WHEELCHAIR. ATE MEALS IN DINING ROOM TODAY, FAMILY VISITED. INCONTINENT AT TIMES, BM 08/27/19. RESTING IN BED, CALL LIGHT WITHIN REACH, WILL CONTINUE TO MONITOR PER POC.
[2019-08-28 20:11] VITALS: BP 115/61
--- NOTE | 2019-08-29 01:44 | NUR ---
PATIENT HAS BEEN LAYING IN BED WATCHING TV TONIGHT. SHE IS ASLEEP AT THIS TIME. SHE HAS A SALINE LOCK IN HER LFA WHICH IS PATENT AND LOCKED AT THIS TIME. PATIENT TOOK HER HS MEDS AT BED TIME WHOLE WITH APPLESAUSE. SHE DID REFUSE HER MIRALAX TONIGHT. PATIENT HAS RIGHT SIDED WEAKNESS AND HEMIPARESIS FROM HER CVA. SHE IS A/0X4. DENIES PAIN AT THIS TIME.
[2019-08-29 08:03] VITALS: BP 125/62
--- NOTE | 2019-08-29 12:09 | NUR ---
Nutrition: Seen for weekly follow up. Eating 25-75% of most meals, with a 40% meal average per last 13 meals. In the last 2 days alone, meal average up to 45%. Pt reports a stable appetite, stating it hasn't worsened any. Continues to enjoy strawberry Ensure Enlive BID. Pt reports drinking 100% of both daily. EMR confirms this as well most days. This adds 750 kcals, 40 g protein/day. Remains on mechanically chopped diet w/ no mixed consistencies. RD reviewed upcoming standard menu, helping pt change entire meal to boost PO success. Dinner tonight will be: baked fish, mac and cheese, peaches, orange sherbet. Encouraged ongoing entree/protein emphasis for greatest nutrition/kcal content. No further nutrition questions/concerns. Keep low nutrition risk.
[2019-08-29 19:35] VITALS: BP 101/55
--- NOTE | 2019-08-29 19:45 | NUR ---
ASSUMED CARE OF PT AT 0700. PT IS A&OX4 AND VITAL SIGNS ARE STABLE. PT REPORTED PAIN TO RIGHT LEG, MANAGED WITH PO MEDICATIONS, PARTICIPATED IN SCHEDULED THERAPIES. UP FOR MEALS IN DINING ROOM. TOLERATED PO MEDICATIONS WHOLE IN APPLESAUCE. FALL PRECAUTIONS IN PLACE AND NURSING WILL CONTINUE TO MONITOR.
--- NOTE | 2019-08-30 02:11 | NUR ---
PT ASSESSMENT COMPLETED AND VSS. MEDS GIVEN ORDERED AND WELL TOLERATED. FALL PRECAUTIONS IN PLACE. ASST WITH REPOSITION FOR COMFORT. NAVIN CARE PROVIDED. PT DENIES NEEDS. SLEEPING WELL. WILL CONTINUE TO MONITOR FREQUENTLY.
[2019-08-30 08:00] VITALS: BP 123/62
--- NOTE | 2019-08-30 12:42 | NUR ---
team meeting recommendation: started having some movement in right hand/wrist yesterday. cont therapy training. (pt, ot, st, nursing). loner [employer] wheel chair. cont with referral to [facility].
[2019-08-30 19:33] VITALS: BP 104/59
--- NOTE | 2019-08-30 19:35 | NUR ---
ASSUMED CARE OF PT AT 0700. PT IS A&OX4 AND VITAL SIGNS ARE STABLE. PT DENIES PAIN AND PARTICIPATED IN SCHEDULED THERAPIES. FALL PRECAUTIONS IN PLACE AND NURSING WILL CONTINUE TO MONITOR.
--- NOTE | 2019-08-31 00:15 | NUR ---
PT ASSESSMENT COMPLETED AND VSS. MEDS GIVEN ORDERED AND WELL TOLERATED. FALL PRECAUTIONS IN PLACE. PRN TYLENOL HELPFUL FOR GENERALIZED DISCOMFORT. ASST WITH REPOSITION FOR COMFORT. INC OF LARGE AMOUNT OF URINE. NAVIN CARE PROVIDED. SLEEPING WELL. WILL CONTINUE TO MONITOR FREQUENTLY.
[2019-08-31 08:00] VITALS: BP 106/54
--- NOTE | 2019-08-31 10:15 | NUR ---
cm visit with pt and . hh list choice provided " viraj and then geovanna for 2nd pick"/quan. referral to be sent out for hh and [facility] referral.
--- NOTE | 2019-08-31 15:19 | NUR ---
discharge planning. anticipated discharge 09/02/19 per unit cm. home with home health services. patient referral faxed to [facility]. call placed to [facility]. spoke with alex. nieves to review referral and notify cm.
--- NOTE | 2019-08-31 18:07 | NUR ---
Patient participated in community reintegration on 08/31/[address] Refer to documentation by SPEECH THERAPIST.
--- NOTE | 2019-08-31 19:30 | NUR ---
ASSUMED CARE OF PT AT 0700.REPORTS SLEPT GOOD LAST NIGHT. PT IS A&OX4 AND VITAL SIGNS ARE STABLE. PT REPORTED PAIN TO RIGHT LEG. DR. CORRALES ORDERED FOR XRAY. NO FRACTURE REPORT. PT HAS BEEN MANAGED HER PAIN WITH BACLOFEN. DENIES NEED FOR PRN TYLENOL THIS AM. PARTICIPATED IN SCHEDULED THERAPIES. UP FOR MEALS IN DINING ROOM AND WENT DOWN TO [place] FOR GROUP AT LUNCH. TOLERATED PO MEDICATIONS WHOLE IN APPLESAUCE. INCONT BLADDER. HAD 2X SOFT BM TODAY. OFFERED SUPPORTIVE CARE. ENCOURAGED PT TO VOICE HER NEEDS. PT HAS GOOD SPIRIT. ALWAYS SMILING AND PARTICIPATED WELL WITH STAFF. PT IS EXCITED TO GO HOME ON THURSDAY AND WORKING WITH THERAPISTS TOWARD DISCHARGE GOALS. FALL PRECAUTIONS IN PLACE. CHECK FREQUENTLY FOR NEEDS AND SAFETY. HAS RIGHT SIDE FLACCID. TRANSFER WITH MAX ASSIST WITH PIVOT. GAVE REPORT TO NIGHT NURSE TO CONTINUE TO TURN Q2HR WHILE IN BED.
[2019-08-31 20:00] VITALS: BP 105/60
--- NOTE | 2019-09-01 04:59 | NUR ---
PATIENT HAS LEARNED TO PIVOT TRANSFER WITH ASSIST OF ONE AND IS HAVING LESS PAIN RECENTLY WITH ASSIST OF BACLOFEN. MANAGING HER RIGHT SIDED WEAKNESS
[2019-09-01 08:00] VITALS: BP 131/67
[2019-09-01 15:41] VITALS: BP 131/67
[2019-09-01 20:00] VITALS: BP 93/50
--- NOTE | 2019-09-01 20:35 | NUR ---
PATIENT ALERT AND ORIENTED AND COOPERTIVE AND PARTICIPATES IN THERAPIES. PATIENT DIRECTS HER OWN CARE. NO VISITORS TODAY.
--- NOTE | 2019-09-02 04:35 | NUR ---
ASSUMED PT CARE AROUND 1914. AXOX3. NO S/S ACUTE DISTRESS NOTED OR REPORTED AT THIS TIME. WILL CONT TO MONITOR FOR ANY CHANGES IN CONDITION.
[2019-09-02 05:59] VITALS: BP 112/65
[2019-09-02 08:00] VITALS: BP 119/66
--- NOTE | 2019-09-02 09:54 | NUR ---
ASSUMED CARE OF PT AT 0700.REPORTS SLEPT GOOD LAST NIGHT. PT IS A&OX4 AND VITAL SIGNS ARE STABLE. PT REPORTED PAIN TO RIGHT LEG. RATES PAIN 3/10 PRN TYLENOL THIS AM. MORNING MEDS GIVEN TOLERATED PO MEDICATIONS WHOLE IN APPLESAUCE. REASSESSMENT PER CHART. LAST BM WAS YESTERDAY. REFUSED MIRALAX TODAY, WILL GO HOME TODAY. INCONT BLADDER. ASSISTED WITH CLEANSING AND CHANGING. OFFERED SUPPORTIVE CARE. ENCOURAGED PT TO VOICE HER NEEDS. PT HAS GOOD SPIRIT. FALL PRECAUTIONS IN PLACE. CHECK FREQUENTLY FOR NEEDS AND SAFETY. HAS RIGHT SIDE FLACCID. TRANSFER WITH MAX ASSIST WITH PIVOT. AT BEDSIDE. PT WILL GO HOME TODAY. [facility] STAFF IS TALKING WITH PT AND HER AT THIS MOMENT. WILL CALL HOSPITALIST TO WORK ON HER MEDS AND WILL SEND H&P AND DISCHARGE SUMMARY TO PT'S PCP.
[2019-09-02] MEDS ORDERED: ATORVASTATIN CA10 MG PO (10:09)
--- NOTE | 2019-09-02 10:30 | NUR ---
pt and just met with [facility] at bedside. pt going to possible start at [facility] by 09/12/2019. provided 2nd insurance liborio [id number] phone # [phone], if we needed it. cm passed on to billing dept.
[2019-09-02] MEDS ORDERED: KEPPRA 500 MG500 M1 PO (13:07)
[2019-09-02] MEDS ORDERED: BACLOFEN 10MG T10 MG PO (13:07)
== END 2019-09-02 13:14 | disposition home health service (06) | DRG 56 ==
PROVIDERS: Internal Medicine; Nurse Practitioner; ADMIT Physical Medicine & Rehabilitation
DX: I69.351 Hemiplegia and hemiparesis following cerebral infarction affecting right dominant side (principal); I61.9 Nontraumatic intracerebral hemorrhage, unspecified; E43 Unspecified severe protein-calorie malnutrition; J96.01 Acute respiratory failure with hypoxia; E87.1 Hypo-osmolality and hyponatremia; Z68.1 Body mass index [BMI] 19.9 or less, adult; R13.10 Dysphagia, unspecified; D72.829 Elevated white blood cell count, unspecified; F41.9 Anxiety disorder, unspecified; F32.9 Major depressive disorder, single episode, unspecified; F17.210 Nicotine dependence, cigarettes, uncomplicated; F01.50 Vascular dementia, unspecified severity, without behavioral disturbance, psychotic disturbance, mood disturbance, and anxiety; E89.0 Postprocedural hypothyroidism; E87.8 Other disorders of electrolyte and fluid balance, not elsewhere classified; J44.9 Chronic obstructive pulmonary disease, unspecified; Z88.2 Allergy status to sulfonamides; Z88.6 Allergy status to analgesic agent; Z79.82 Long term (current) use of aspirin; Z79.899 Other long term (current) drug therapy; Z23 Encounter for immunization
CPT/HCPCS: 10112